=== PATIENT | male | born 1980 | race African-American/Black ===

== ENCOUNTER 2022-07-19 16:09 | Emergency (ER) | payer SELFPAY ==
[~2022-07-19] VITALS: Ht 182.9 cm; Wt 123.2 kg
[2022-07-19 16:43] VITALS: BP 155/96
== END 2022-07-19 17:30 | disposition left against medical advice (07) | DRG 951 ==
LOC: ED 16:09 → LWOBS 17:30
DX: Z53.21 Procedure and treatment not carried out due to patient leaving prior to being seen by health care provider (principal)

== ENCOUNTER 2022-11-10 23:58 | Emergency (ER) | payer OTHER ==
[~2022-11-10] VITALS: Ht 182.9 cm; Wt 110.0 kg
[2022-11-11 00:08] VITALS: BP 145/106
[2022-11-11 00:15] VITALS: BP 141/103
[2022-11-11 00:31] VITALS: BP 147/115
[2022-11-11 00:45] VITALS: BP 161/113
[2022-11-11] MEDS ORDERED: ULTRAM50 MG PO (01:06)
== END 2022-11-11 01:17 | disposition home or self-care (01) ==
LOC: ED 23:58
DX: S20.211A Contusion of right front wall of thorax, initial encounter (principal); I10 Essential (primary) hypertension; X58.XXXA Exposure to other specified factors, initial encounter

== ENCOUNTER 2023-05-26 16:27 | Emergency (ER) | payer OTHER ==
[2023-05-26] VITALS (9 sets, daily range): BP systolic 131–173; BP diastolic 90–107
[~2023-05-26] VITALS: Ht 182.9 cm; Wt 122.0 kg
[~2023-05-26 16:27] MED LIST: AMOX/K CLAV875 M1 PO; COZAAR50 MG PO; MOMETASONE50 MCG/ACT IN; PERCOCET 5/321 COMBO PO; SUDAFED 12HR120 MG PO; ULTRAM50 MG PO
== END 2023-05-26 19:19 | disposition home or self-care (01) ==
LOC: ED 16:27
DX: I10 Essential (primary) hypertension (principal); T46.5X6A Underdosing of other antihypertensive drugs, initial encounter; Z91.128 Patient's intentional underdosing of medication regimen for other reason